=== PATIENT | male | born 1990 | race African-American/Black ===

== ENCOUNTER 2016-04-17 16:42 | Emergency (ER) | payer OTHER ==
--- NOTE | 2016-04-17 19:33 | Emergency Department Report ---
ED ENT HPI - General Chief complaint: Sore Throat Stated complaint: RT SIDE OF FACE SWELLING Time Seen by Provider: 04/17/16 19:29 Source: patient Mode of arrival: Ambulatory Limitations: Language Barrier - History of Present Illness Initial comments: 25M PMH Kidney Stones presents with complaint of right side lower dental pain for a few hours today. Patient denies any recent dental work denies any pus or blood drainage from mouth, denies any shortness of breath. Patient speaking in full sentences no trismus no drooling no tongue enlargement, aaO 3 not in acute distress states that pain subsided about an hour ago has not taken anything for the pain. Patient states he feels it in his right lower incisor region.Deneis fever or chills, states pain radiated up his face along lower right jawline. MD complaint: tooth pain Onset/Timin -: hour(s) Location: tooth # (27,28) Severity: moderate Severity scale (0 -10): 6 Quality: aching Consistency: constant Improves with: none Worsens with: other (chewing) - Related Data Previous Rx's Medication Instructions Recorded Last Taken Type Acetaminophen/Codeine [Tylenol #3] 1 tab PO Q6H PRN #15 tab 04/17/16 Unknown Rx Amoxicillin/K Clav Tab [Augmentin 1 tab PO Q12HR #20 tab 04/17/16 Unknown Rx 875 mg] Chlorhexidine Mouthwash [Peridex] 20 ml MM BID #1 bottle 04/17/16 Unknown Rx Ibuprofen [Motrin] 600 mg PO Q8H PRN #30 tablet 04/17/16 Unknown Rx Allergies Allergy/AdvReac Type Severity Reaction Status Date / Time No Known Allergies Allergy Unverified 04/17/16 16:48 ED Dental HPI - General Chief complaint: Sore Throat Stated complaint: RT SIDE OF FACE SWELLING Time Seen by Provider: 04/17/16 19:29 Source: patient Mode of arrival: Ambulatory Limitations: Language Barrier - Related Data Previous Rx's Medication Instructions Recorded Last Taken Type Acetaminophen/Codeine [Tylenol #3] 1 tab PO Q6H PRN #15 tab 04/17/16 Unknown Rx Amoxicillin/K Clav Tab [Augmentin 1 tab PO Q12HR #20 tab 04/17/16 Unknown Rx 875 mg] Chlorhexidine Mouthwash [Peridex] 20 ml MM BID #1 bottle 04/17/16 Unknown Rx Ibuprofen [Motrin] 600 mg PO Q8H PRN #30 tablet 04/17/16 Unknown Rx Allergies Allergy/AdvReac Type Severity Reaction Status Date / Time No Known Allergies Allergy Unverified 04/17/16 16:48 ED Review of Systems ROS: Stated complaint: RT SIDE OF FACE SWELLING Other details as noted in HPI Constitutional: denies: chills, fever Eyes: denies: eye pain, eye discharge, vision change ENT: dental pain. denies: ear pain, throat pain Respiratory: denies: cough, shortness of breath, wheezing Cardiovascular: denies: chest pain, palpitations Endocrine: no symptoms reported Gastrointestinal: denies: abdominal pain, nausea, diarrhea Genitourinary: denies: urgency, dysuria Musculoskeletal: denies: back pain, joint swelling, arthralgia Skin: denies: rash, lesions Neurological: denies: headache, weakness, paresthesias Psychiatric: denies: anxiety, depression Hematological/Lymphatic: denies: easy bleeding, easy bruising ED Past Medical Hx - Past Medical History Previous Medical History?: Yes Hx Kidney Stones: Yes - Surgical History Past Surgical History?: Yes Additional Surgical History: Kidneystones removed - Social History Smoking Status: Never Smoker Substance Use Type: None - Medications Home Medications: Home Medications Medication Instructions Recorded Confirmed Last Taken Type Acetaminophen/Codeine [Tylenol #3] 1 tab PO Q6H PRN #15 tab 04/17/16 Unknown Rx Amoxicillin/K Clav Tab [Augmentin 1 tab PO Q12HR #20 tab 04/17/16 Unknown Rx 875 mg] Chlorhexidine Mouthwash [Peridex] 20 ml MM BID #1 bottle 04/17/16 Unknown Rx Ibuprofen [Motrin] 600 mg PO Q8H PRN #30 tablet 04/17/16 Unknown Rx ED Physical Exam - General Limitations: Language Barrier General appearance: alert, in no apparent distress - Head Head exam: Present: atraumatic, normocephalic - Eye Eye exam: Present: normal appearance, PERRL, EOMI - ENT ENT exam: Present: mucous membranes moist - Expanded ENT Exam Expanded Ear exam: Present: normal external inspection Mouth exam: Present: normal external inspection, tongue normal Teeth exam: Present: dental caries, dental tenderness # (27,28), other ( emergeing wisdom tooth lower right molar region behind tooth#32) Throat exam: Positive: normal inspection - Neck Neck exam: Present: normal inspection - Expanded Neck Exam Expanded Neck exam: Present: other (no significant adenopathy, masses or lesions, no abscess, tiny amount of right sidedsubmandibular tenderness) - Respiratory Respiratory exam: Present: normal lung sounds bilaterally. Absent: respiratory distress - Cardiovascular Cardiovascular Exam: Present: regular rate, normal rhythm. Absent: systolic murmur, diastolic murmur, rubs, gallop - GI/Abdominal GI/Abdominal exam: Present: soft, normal bowel sounds - Rectal Rectal exam: Present: deferred - Extremities Exam Extremities exam: Present: normal inspection - Back Exam Back exam: Present: normal inspection - Neurological Exam Neurological exam: Present: alert, oriented X3, CN II-XII intact, normal gait - Psychiatric Psychiatric exam: Present: normal affect, normal mood - Skin Skin exam: Present: warm, dry, intact, normal color. Absent: rash ED Course Vital Signs 04/17/16 16:48 Temperature 97.6 F Pulse Rate 76 Respiratory 18 Rate Blood Pressure 135/89 O2 Sat by Pulse 100 Oximetry ED Medical Decision Making - Medical Decision Making A/P: Toothache, dental caries, possible impacted wisdom tooth, early dental abscess 1-on clinical exam there is no trismus noted drooling no pus drainage no bleeding oropharynx patent no evidence of edema of the tongue or floor of mouth no induration on clinical palpation of floor of mouth no large visible abscess, possible tiny abscess adjacent to tooth #28 lower right incisor, visible emerging wisdom tooth behind #32 year molar 2-Augmentin, Peridex mouthwash, Motrin 600 when necessary, Tylenol No. 3 when necessary 3-I referred patient to dental clinics and stressed the importance of follow-up for dental x-rays and reassessment of his dental caries, patient understood the importance of follow-up with dentistry expressed understanding 4- I explained to patient that he may also have very mild case of sialolithiasis for which the treatment would be sialogouges, he has no clinical facial swelling on exam or overt signs of infection to suggest a severely infected or blocked salivary duct. Critical care attestation.: If time is entered above; I have spent that time in minutes in the direct care of this critically ill patient, excluding procedure time. ED Disposition Clinical Impression: Pain, dental Disposition: DISCHARGED TO HOME OR SELFCARE Is pt being admited?: No Does the pt Need Aspirin: No Condition: Stable Instructions: Dental Abscess (ED), Toothache (ED), Sialoadenitis (ED) Prescriptions: Acetaminophen/Codeine [Tylenol #3] 1 tab PO Q6H PRN #15 tab PRN Reason: Pain Amoxicillin/K Clav Tab [Augmentin 875 mg] 1 tab PO Q12HR #20 tab Chlorhexidine Mouthwash [Peridex] 20 ml MM BID #1 bottle Ibuprofen [Motrin] 600 mg PO Q8H PRN #30 tablet PRN Reason: Pain Referrals: [facility] [Outside] - 3-5 Days Time of Disposition: 19:43
[2016-04-17] MEDS ORDERED: MOTRIN PO ONE (19:49)
[2016-04-17 19:57] VITALS: BP 132/88
== END 2016-04-17 19:57 | disposition home or self-care (01) ==
LOC: ED 16:42
DX: K02.9 Dental caries, unspecified (principal); Z87.442 Personal history of urinary calculi; Z79.1 Long term (current) use of non-steroidal anti-inflammatories (NSAID); Z79.2 Long term (current) use of antibiotics; Z79.899 Other long term (current) drug therapy
CPT/HCPCS: 99282

== ENCOUNTER 2017-08-11 21:07 | Emergency (ER) | payer OTHER ==
[2017-08-11] MEDS ORDERED: TORADOL IV ONE (22:06)
[2017-08-11 22:14] LABS: Basophils # (Auto) 0.1 K/mm3 (0.0-0.1); Basophils % (Auto) 0.9 % (0.0-1.8); Eosinophils # (Auto) 0.4 K/mm3 (0.0-0.4); Eosinophils % (Auto) 6.3 % (0.0-4.3); Hematocrit 45.7 % (35.5-45.6); Hemoglobin 15.3 gm/dl (11.8-15.2); Lymphocytes # (Auto) 1.9 K/mm3 (1.2-5.4); Lymphocytes % (Auto) 29.3 % (13.4-35.0); Mean Corpuscular HGB Conc 34 % (32-34); Mean Corpuscular Hemoglobin 30 pg (28-32); Mean Corpuscular Volume 89 fl (84-94); Monocytes # (Auto) 0.4 K/mm3 (0.0-0.8); Platelet Count 289 K/mm3 (140-440); Red Blood Count 5.13 M/mm3 (3.65-5.03); Red Cell Distribution Width 12.2 % (13.2-15.2)
[2017-08-11 22:21] LABS: BUN/Creatinine Ratio 20; Blood Urea Nitrogen 16 mg/dL (9-20); Calcium 9.4 mg/dL (8.4-10.2); Hemolysis Index 12
--- NOTE | 2017-08-11 23:45 | Emergency Department Report ---
ED Abdominal Pain HPI - General Chief Complaint: Abdominal Pain Stated Complaint: BACK PAIN Time Seen by Provider: 08/11/17 23:34 Source: patient Mode of arrival: Ambulatory Limitations: No Limitations - History of Present Illness Initial Comments: 27 year-old man with hx of kidney stones presents with acute osnet R flank pain. now radiating into R groin. no testicular or penile pain. No fever. Pain with urination. No blood in urine. No home meds. No allergies. MD Complaint: flank pain -: Sudden Time: 21:00 Location: R flank Radiation: suprapubic Severity: severe Severity scale (0 -10): 10 Quality: sharp Improves With: nothing Worsens With: nothing Associated Symptoms: other (dysuria) - Related Data Previous Rx's Medication Instructions Recorded Last Taken Type Acetaminophen/Codeine [Tylenol #3] 1 tab PO Q6H PRN #15 tab 04/17/16 Unknown Rx Amoxicillin/K Clav Tab [Augmentin 1 tab PO Q12HR #20 tab 04/17/16 Unknown Rx 875 mg] Chlorhexidine Mouthwash [Peridex] 20 ml MM BID #1 bottle 04/17/16 Unknown Rx Ibuprofen [Motrin] 600 mg PO Q8H PRN #30 tablet 04/17/16 Unknown Rx Allergies Allergy/AdvReac Type Severity Reaction Status Date / Time No Known Allergies Allergy Verified 08/11/17 23:35 ED Review of Systems ROS: Stated complaint: BACK PAIN Other details as noted in HPI Comment: All other systems reviewed and negative ED Past Medical Hx - Past Medical History Hx Kidney Stones: Yes - Surgical History Additional Surgical History: Kidneystones removed - Social History Smoking Status: Never Smoker Substance Use Type: None - Medications Home Medications: Home Medications Medication Instructions Recorded Confirmed Last Taken Type Acetaminophen/Codeine [Tylenol #3] 1 tab PO Q6H PRN #15 tab 04/17/16 Unknown Rx Amoxicillin/K Clav Tab [Augmentin 1 tab PO Q12HR #20 tab 04/17/16 Unknown Rx 875 mg] Chlorhexidine Mouthwash [Peridex] 20 ml MM BID #1 bottle 04/17/16 Unknown Rx Ibuprofen [Motrin] 600 mg PO Q8H PRN #30 tablet 04/17/16 Unknown Rx ED Physical Exam - General Limitations: No Limitations General appearance: alert, in no apparent distress - Head Head exam: Present: atraumatic, normocephalic - Eye Eye exam: Present: normal appearance - ENT ENT exam: Present: mucous membranes moist - Neck Neck exam: Present: normal inspection - Respiratory Respiratory exam: Present: normal lung sounds bilaterally. Absent: respiratory distress - Cardiovascular Cardiovascular Exam: Present: regular rate, normal rhythm. Absent: systolic murmur, diastolic murmur, rubs, gallop - GI/Abdominal GI/Abdominal exam: Present: soft, other (R CVA ttp). Absent: distended, tenderness - Rectal Rectal exam: Present: deferred - Extremities Exam Extremities exam: Present: normal inspection - Back Exam Back exam: Present: normal inspection - Neurological Exam Neurological exam: Present: alert, oriented X3 - Psychiatric Psychiatric exam: Present: normal affect, normal mood - Skin Skin exam: Present: warm, dry, intact, normal color. Absent: rash ED Course Vital Signs 08/11/17 08/11/17 08/11/17 21:07 21:37 23:20 Temperature 98.2 F 98 F Pulse Rate 68 68 Respiratory 16 18 16 Rate Blood Pressure 130/82 130/82 Blood Pressure [Left] O2 Sat by Pulse 100 100 Oximetry 08/12/17 00:29 Temperature 98.7 F Pulse Rate 65 Respiratory 16 Rate Blood Pressure Blood Pressure 134/92 [Left] O2 Sat by Pulse 99 Oximetry ED Medical Decision Making - Lab Data Result diagrams: 08/11/17 21:52 08/11/17 21:52 Lab Results 08/11/17 08/11/17 08/11/17 Range/Units 21:52 21:52 23:25 WBC 6.4 (4.5-11.0) K/mm3 RBC 5.13 H (3.65-5.03) M/mm3 Hgb 15.3 H (11.8-15.2) gm/dl Hct 45.7 H (35.5-45.6) % MCV 89 (84-94) fl MCH 30 (28-32) pg MCHC 34 (32-34) % RDW 12.2 L (13.2-15.2) % Plt Count 289 (140-440) K/mm3 Lymph % (Auto) 29.3 (13.4-35.0) % Andrew % (Auto) 7.0 (0.0-7.3) % Eos % (Auto) 6.3 H (0.0-4.3) % Baso % (Auto) 0.9 (0.0-1.8) % Lymph # 1.9 (1.2-5.4) K/mm3 Andrew # 0.4 (0.0-0.8) K/mm3 Eos # 0.4 (0.0-0.4) K/mm3 Baso # 0.1 (0.0-0.1) K/mm3 Seg Neutrophils % 56.5 (40.0-70.0) % Seg Neutrophils # 3.6 (1.8-7.7) K/mm3 Sodium 139 (137-145) mmol/L Potassium 3.9 (3.6-5.0) mmol/L Chloride 98.4 (98-107) mmol/L Carbon Dioxide 29 (22-30) mmol/L Anion Gap 16 mmol/L BUN 16 (9-20) mg/dL Creatinine 0.8 (0.8-1.5) mg/dL Estimated GFR > 60 ml/min BUN/Creatinine Ratio 20 % Glucose 91 (75-100) mg/dL Calcium 9.4 (8.4-10.2) mg/dL Urine Color Yellow (Yellow) Urine Turbidity Clear (Clear) Urine pH 6.0 (5.0-7.0) Ur Specific [place] 1.016 (1.003-1.030) Urine Protein <15 mg/dl (Negative) mg/dL Urine Glucose (UA) Neg (Negative) mg/dL Urine Ketones Neg (Negative) mg/dL Urine Blood Lg (Negative) Urine Nitrite Neg (Negative) Urine Bilirubin Neg (Negative) Urine Urobilinogen < 2.0 (<2.0) mg/dL Ur Leukocyte Esterase Neg (Negative) Urine WBC (Auto) 1.0 (0.0-6.0) /HPF Urine RBC (Auto) > 182.0 (0.0-6.0) /HPF Urine Bacteria (Auto) 1+ (Negative) /HPF Calcium Oxalate Crystal Few Urine Mucus Few /HPF - Radiology Data EXAM: CT ABDOMEN PELVIS WO CON HISTORY: flank pain COMPARISON: None available. TECHNIQUE: Contiguous axial images were obtained. Additional sagittal and coronal reformatted images were obtained. FINDINGS: Lung bases are clear. No calcified gallstones. Liver, spleen, pancreas and adrenal glands are grossly unremarkable. 2 millimeter nonobstructive right renal calculus. At the posterior right margin the urinary bladder within or adjacent to the UVJ there is a 3 x 3 millimeter calculus causing mild dilatation of the distal right ureter. No hydronephrosis on the left. Aorta and IVC are normal in caliber. Prostate gland is grossly unremarkable. No free fluid or lymphadenopathy in the pelvic cavity. The appendix is gas-filled and normal in caliber. No focal inflammatory changes the bowel. Lumbar vertebral body heights are preserved. Bony pelvis is grossly intact. IMPRESSION: 3 x 3 millimeter calculus within or adjacent to the right UVJ causing mild dilatation of the distal right ureter. There is an additional 2 millimeter nonobstructive right renal calculus. No nephrolithiasis or hydronephrosis on the left. - Medical Decision Making Mr Granados is a 27 year-old man with hx of kidney stones who presents with R flank pain. onset tonight. Pain that radiates to his groin. Pain with urination. No blood in urine. No nausea/vomiting. No fevers. Exam with mild R CVA ttp. suspect pyelo vs uti vs kidney stone. UA with blood. Cr normal. No evidence of infection. CT with 3mm stone at UVJ. Flomax, toradol and percocet. Brother is driving him home. Improvement in pain. Home with flomax and percocet and care instructions. Given return precautions and urology f/u as needed. Critical care attestation.: If time is entered above; I have spent that time in minutes in the direct care of this critically ill patient, excluding procedure time. ED Disposition Clinical Impression: Kidney stones Disposition: DC- TO HOME OR SELFCARE Is pt being admited?: No Does the pt Need Aspirin: No Condition: Stable Instructions: Kidney Stones (ED) Referrals: STEW HARDING MD [Staff Physician] - 2-3 Days (3mm stone, referral as needed )
[2017-08-11 23:54] LABS: Bacteria,Urine 1+ /HPF (Negative); Bilirubin,Urine NEG (Negative); Blood,Urine LG (Negative); Calcium Oxalate Crystals,Urine FEW; Color,Urine Yellow (Yellow); Mucus,Urine FEW /HPF; Protein,Urine <15 mg/dL mg/dL (Negative); Urobilinogen,Urine < 2.0 mg/dL (<2.0)
[2017-08-11 23:59] LABS: RBC,Urine > 182.0 /HPF (0.0-6.0)
--- NOTE | 2017-08-12 00:23 | Cat Scan Report ---
FINAL REPORT EXAM: CT ABDOMEN PELVIS WO CON HISTORY: flank pain COMPARISON: None available. TECHNIQUE: Contiguous axial images were obtained. Additional sagittal and coronal reformatted images were obtained. FINDINGS: Lung bases are clear. No calcified gallstones. Liver, spleen, pancreas and adrenal glands are grossly unremarkable. 2 millimeter nonobstructive right renal calculus. At the posterior right margin the urinary bladder within or adjacent to the UVJ there is a 3 x 3 millimeter calculus causing mild dilatation of the distal right ureter. No hydronephrosis on the left. Aorta and IVC are normal in caliber. Prostate gland is grossly unremarkable. No free fluid or lymphadenopathy in the pelvic cavity. The appendix is gas-filled and normal in caliber. No focal inflammatory changes the bowel. Lumbar vertebral body heights are preserved. Bony pelvis is grossly intact. IMPRESSION: 3 x 3 millimeter calculus within or adjacent to the right UVJ causing mild dilatation of the distal right ureter. There is an additional 2 millimeter nonobstructive right renal calculus. No nephrolithiasis or hydronephrosis on the left.
[2017-08-12 00:30] VITALS: BP 134/92
[2017-08-12] MEDS ORDERED: FLOMAX PO ONE (00:51)
== END 2017-08-12 01:19 | disposition home or self-care (01) ==
LOC: ED 21:07
DX: N20.0 Calculus of kidney (principal)
CPT/HCPCS: 36415; 74176; 80048; 81001; 85025; 96374; 99284; J1885